=== PATIENT | male | born 1950 | race Caucasian/White ===

== ENCOUNTER → 2022-04-19 07:22 | Outpatient (REF) | payer MEDICARE, OTHER, SELFPAY ==
--- NOTE | 2022-04-19 07:27 | CA_ITS ---
Transthoracic Echocardiogram Patient (Last, First, Middle): Jacinto Jones E Gender: Male Date of : 1950 Age: 72 Procedure Date: 04/19/2022 Procedure Type: Transthoracic Echocardiogram Location: OP Height: 177.8 cm Weight: 90.72 kg BSA: 2.09 m2 Heart Rate: bpm BP: 130 / 90 mmHg Crisis Clinician: TO Referring MD: Shanice Funez MD Reel Cutter: Hai Porras MD Symptoms: I10 HTN R00.0 TACHYCARDIA Study Quality: Fair ECG Rhythm: Sinus Conclusions: - 1. Normal LV systolic function with mild LVH with grade 1 diastolic dysfunction 2. Mild aortic regurgitation 3. Mildly dilated ascending aorta at 4.1 cm 4. No gross pericardial effusion Findings Left Ventricle Normal left ventricular size and systolic function. There is mildly increased left ventricular wall thickness. Spectral Doppler is indicative of an impaired relaxation filling pattern. E/E prime ratio is <8, consistent with normal filling pressures. Right Ventricle Normal right ventricular cavity size and systolic function. Atria The left atrium is likely dilated. There is no evidence of interatrial shunt. The right atrium is normal in size. Aortic Valve There is mild calcification of the aortic valve. There is no aortic valve stenosis. There is mild aortic valve regurgitation. Mitral Valve There is mild anterior and posterior mitral leaflet thickening. There is trace mitral valve regurgitation. There is no mitral valve stenosis. Pulmonic Valve The pulmonic valve was not well visualized. Tricuspid Valve Likely normal tricuspid valve structure and function. Tricuspid regurgitation envelope is inadequate for calculation of right ventricular systolic pressure. Normal right atrial pressure. Great Vessels The pulmonary artery was not well visualized. There is mild dilatation of the ascending aorta measuring 4.10 cm. Moderate plaque is seen in the sino tubular ridge. Venous The inferior vena cava is normal in size and collapses greater than 50% with inspiration. Pericardium/Pleural There is no evidence of pericardial effusion. Prior Study Comparison No prior study available for comparison. Measurements 2D Linear Measurements IVSd: 1.18 0.6-0.9/0.6-1.0 cm LVIDd: 4.86 3.9-5.3/4.2-5.9 cm LVIDd Index: 2.33 2.4-3.2/2.2-3.1 cm/m2 LVIDs: 3.55 2.0-3.6 cm LVPWd: 1.14 0.7-1.1 cm LA Diam: 3.70 2.7-3.8/3.0-4.0 cm LAIDs Index: 1.77 1.5-2.3 cm/m2 LV Mass: 265.57 67-162/88-224 g LV Mass Index: 127.07 43-95/49-115 g/m2 LVOT Diam: 2.20 3.0+(-)1.3 cm 2D Systolic Function EF 4C: 68.20 >55% EF 2C: 61.40 >55% EF BiP: 65.80 >55% Mitral Valve MV Pk E: 0.36 MV PK A: 0.86 MV Decel Time: 121.00 E/A: 0.40 E'Lateral: 5.00 E'Medial: 3.70 E/E' Med: 9.60 E/E' Lat: 7.10 PHT: 35.00 MVA PHT: 6.29 Decel Monroe: 2.95 Aortic Valve AoV Pk Anthony: 1.21 AoV Mn Anthony: 0.83 AoV VTI: 0.23 AoV Pk Grad: 6.00 Aov Mn Grad: 3.00 ANNEMARIE Cont.VTI: 2.71 LVOT LVOT Pk Anthony: 0.87 LVOT Mn Anthony: 0.58 LVOT VTI: 0.17 LVOT Pk Grad: 3.00 LVOT Mn Grad: 2.00 LVOT Diam: 2.20 LVOT Area: 3.80 Diastolic Function MV Pk E: 0.36 MV Pk A: 0.86 E/A: 0.40 E'Medial: 3.70 E/E' Med: 9.60 E' Laterial: 5.00 E/E' Lat: 7.10 Right Ventricle TAPSE (mm): 18.70 TVS' Anthony: 12.60 Great Vessels Aorta Sinus of Valsalva: 4.50 2.0-3.[address] Ridge: 3.30 1.7-3.4 cm Ao Asc: 4.10 2.1-3.4 cm Updated in Other Vendor System with Status of Final Hai Porras MD electronically signed on 04/20/2022 12:07:25 PM with status of Final
== END ==
LOC: HO.CARD 07:22
PROVIDERS: PCP Internal Medicine; Visit Provider Internal Medicine
DX: I10 Essential (primary) hypertension (principal); R00.0 Tachycardia, unspecified
CPT/HCPCS: 93306

== ENCOUNTER 2023-12-24 10:59 | Outpatient (REF) | payer MEDICARE, SELFPAY ==
[2023-12-24 16:33] LABS: Hematocrit 42.3 % (42.0-52.0); Hemoglobin 14.1 g/dl (14.0-18.0); Mean Corpuscular HGB Conc 33.3 g/dl (31.0-36.0); Mean Corpuscular Hemoglobin 33.3 pg (27.0-33.0); Mean Platelet Volume 11.8 fL (9.4-12.4); Platelet Count 296 X10*3/uL (160-400); Red Blood Count 4.23 X10*6/uL (4.60-5.80); Red Cell Distribution Width 13.8 % (11.0-16.0); White Blood Count 9.1 X10*3/uL (4.8-10.8)
[2023-12-24 17:08] LABS: Alanine Aminotransferase 11 U/L (0-40); Albumin Level 3.9 g/dL (3.5-5.0); Alkaline Phosphatase 158 U/L (39-117); Anion Gap 18 (12-20); Aspartate Amino Transferase 19 U/L (5-37); Bilirubin Total 0.7 mg/dL (0.0-1.0); Blood Urea Nitrogen 15 mg/dL (9-16); Calcium 9.7 mg/dL (8.4-10.2); Carbon Dioxide 24 mmol/L (22-29); Chloride 104 mmol/L (96-108); Cholesterol 202 mg/dL (<200); Estimated Glomerular Filt Rate > 60; Glucose Random 112 mg/dL (60-115); HDL Cholesterol 42 mg/dL (>40); LDL Cholesterol Calculated 142 mg/dL (<100); Potassium 4.4 mmol/L (3.3-5.1); Sodium 142 mmol/L (135-145); Total Protein 7.3 g/dL (6.5-8.0); Triglycerides 94 mg/dL (<150); Uric Acid 7.7 mg/dL (3.4-7.0)
[2023-12-24 17:08] LABS: Estimated Average Glucose 108 mg/dL; Hemoglobin A1c % 5.4 % (<6.0)
[2023-12-24 17:24] LABS: Prostate Specific Antigen 2.15 ng/mL (<0.05-4.0)
[2023-12-24 17:27] LABS: TSH reflex Free T4 1.76 uIU/mL (0.32-4.0); Vitamin D 25-OH Total 7.1 ng/mL (>30)
[2023-12-25 09:24] LABS: HBS Num1 0.49 mIU/mL (0-7.99); HBc Num1 0.15 S/CO (0.00-0.79); HBsAGNum1 0.28 S/CO (0.00-0.99); HIV AB/AG Nonreactive (Nonreactive); HIV Num 1 0.04 S/CO (0.00-0.99); Hepatitis B Core Antibody Nonreactive (Nonreactive); Hepatitis B Surface Antigen Negative (Negative); ~HepC Num1 0.14 S/CO (0.00-0.79); ~Hepatitis B Surface Antibody NONREACTIVE (Nonreactive); ~Hepatitis C Antibody Nonreactive (Nonreactive)
[2023-12-25 09:47] LABS: Syphilis Screen Nonreactive (Nonreactive)
[2023-12-25 10:03] LABS: Gamma Glutamyl Transpeptidase 157 U/L (11-51)
[2023-12-25 15:26] LABS: Vitamin B12 318 pg/mL (200-900)
== END 2023-12-24 11:00 | disposition home or self-care (01) ==
LOC: HO.HHCL 10:59
PROVIDERS: Visit Provider Student in an Organized Health Care Education/Training Program
DX: Z00.00 Encounter for general adult medical examination without abnormal findings (principal); M10.9 Gout, unspecified; F10.10 Alcohol abuse, uncomplicated; Z11.59 Encounter for screening for other viral diseases; Z72.89 Other problems related to lifestyle; Z12.5 Encounter for screening for malignant neoplasm of prostate
CPT/HCPCS: 36415; 80053; 80061; 82306; 82607; 82746; 82977; 83036; 84153; 84443; 84550; 85027; 86704; 86706; 86780; 86803; 87340; 87389

== ENCOUNTER 2024-01-09 08:32 | Outpatient (REF) | payer MEDICARE, SELFPAY ==
--- NOTE | ~2024-01-09 | US_ITS ---
EXAMINATION: US ABDOMEN COMPLETE CLINICAL INFORMATION: Elevated alkaline phosphatase and GGT. Evaluate liver and biliary system. COMPARISON: Abdominal aortic ultrasound 09/02/2019. TECHNIQUE: Real-time imaging of the abdominal viscera. Technically difficult study secondary to body habitus. FINDINGS: PANCREAS: Limited visualization of pancreatic tail and head. Imaged portion of pancreatic body is unremarkable. ABDOMINAL AORTA: Limited visualization with particular poor visualization of the mid abdominal aorta. INFERIOR VENA CAVA: Visualized portions are normal. LIVER: Hepatomegaly, right hepatic lobe measures 18.9 cm in sagittal dimension. Limited visualization of the liver. Patchy and heterogeneous hepatic echotexture, possibly related to hepatocellular disease. Correlation with LFTs and clinical exam recommended. GALLBLADDER: Multiple gallstones within the gallbladder. Gallbladder wall thickness 2 mm. Gallbladder suboptimally distended. COMMON BILE DUCT: Normal in caliber measuring 0.3 cm in diameter. RIGHT KIDNEY: No hydronephrosis. No renal calculi. Limited visualization. The kidney measures 10.5 cm in maximum dimension. LEFT KIDNEY: No hydronephrosis. No renal calculi. Limited visualization. The kidney measures 10.5 cm in maximum dimension. SPLEEN: Normal. The spleen measures 6.7 cm in maximum dimension. FREE FLUID: None. US/US abdomen complete IMPRESSION: 1. Hepatomegaly. Patchy and heterogeneous hepatic echotexture, possibly related to hepatocellular disease. Correlation with LFTs and clinical exam recommended. 2. Cholelithiasis.
== END 2024-01-09 08:33 | disposition home or self-care (01) ==
LOC: HO.US 08:32
PROVIDERS: PCP Student in an Organized Health Care Education/Training Program; Visit Provider Student in an Organized Health Care Education/Training Program
DX: R74.8 Abnormal levels of other serum enzymes (principal)
CPT/HCPCS: 76700